=== PATIENT | male | born 1955 | race Caucasian/White ===

== ENCOUNTER 2020-04-13 14:55 | Emergency (ER) | payer OTHER, SELFPAY ==
[2020-04-13] VITALS (14 sets, daily range): BP systolic 123–177; BP diastolic 79–98; PULSE 96–106; RESP 21–30; TEMP 36.6; O2SAT 89–94
--- NOTE | ~2020-04-13 | XR_ITS ---
EXAMINATION: XR chest 1V portable DATE: 04/13/2020 15:22 INDICATION: Cough. Shortness of breath. Fever. TECHNIQUE: A single frontal view of the chest was obtained. COMPARISON: Chest single view 11/21/14, CT abdomen and pelvis 04/21/2015 FINDINGS: There are patchy and hazy airspace opacities in all lung zones bilaterally. No pleural effu tk or pneumothorax. The heart size is normal. IMPRESSION: 1. Diffuse lung disease suspicious for atypical pneumonia such as COVID-19 pneumonia. Pulmonary edema is less likely. Reviewed, dictated and finalized at location A. IDENT IMPRESSION: 1. Diffuse lung disease suspicious for atypical pneumonia such as COVID-19 pneu monia. Pulmonary edema is less likely.
--- NOTE | 2020-04-13 15:06 | ECG_ITS ---
Measurements Intervals [facility] Rate: 105 P: 9 AR: 141 QRS: -43 QRSD: 92 T: 66 QT: 338 QTc: 447 Interpretive Statements SINUS TACHYCARDIA LEFT AXIS DEVIATION DELAYED PRECORDIAL R/S TRANSITION BASELINE ARTIFACT- I, AVR, V1-V3, V6 BORDERLINE ECG Electronically Signed On 04-13-2020 16:04:07 TRAP SETTER by Mckay Hwang D.O.
[2020-04-13 15:15] LABS: Hematocrit 47.7 % (42.0-52.0); Hemoglobin 16.7 g/dL (14.0-18.0); Mean Corpuscular Hemoglobin 30.3 pg (26-34); Mean Corpuscular Volume 86.4 fl (80-100); Mean Platelet Volume 10.7 fl (7.4-10.4); Platelet Count Result 256 k/mm3 (150-375); Red Blood Count 5.52 M/mm3 (4.6-6.20); Red Cell Distribution Width 11.8 % (11.5-14.5); White Blood Count 14.4 K/mm3 (4.5-10.0)
[2020-04-13 15:26] LABS: Anion Gap 18 mmol/L (8-16); Blood Urea Nitrogen 28 mg/dL (9-20); Calcium 9.3 mg/dL (8.4-10.2); Carbon Dioxide 19 mmol/L (22-30); Chloride 96 mmol/L (98-107); Estimated CRCL calculation 54 ml/min; Estimated Glomerular Filt Rate > 60; Glucose 224 mg/dL (75-110); Potassium 4.4 mmol/L (3.4-5.0); Sodium 133 mmol/L (137-145)
[2020-04-13 15:39] LABS: Band Neutrophils Percent 7 % (0-6); Lymphocytes Absolute Manual 0.72 K/mm3 (1.1-4.5); Monocytes Absolute Manual 0.72 K/mm3 (0.1-0.90); Monocytes Percent Manual 5 % (3-9); Neutrophils Absolute Manual 12.96 K/mm3 (1.3-6.7); Neutrophils Percent Manual 83 % (46-73); Platelet Estimate Adequate (Adequate); Total Cells Counted 100
[2020-04-13] MEDS: SODIUM CHLORIDE 0.9% IV 1,000 ML 500 ML IV CONT (17:13)
--- NOTE | 2020-04-13 17:33 | ED.GENADULT ---
HPI - General Adult General Chief complaint: Shortness of Breath/Dyspnea Stated complaint: sob, fever Time Seen by Provider: 04/13/20 15:06 Source: patient Mode of arrival: ambulatory Limitations: no limitations History of Present Illness HPI narrative: 65-year-old with a history of hypertension, diabetes, hyperlipidemia here with complaints of not feeling well, shortness of breath, cough for past 5 days he also states that he has been having fever on and off. He states that he went to urgent care was later referred here to the ER. No history of nausea or vomiting. Onset (ago): day(s) (5) Radiation: non-radiation Associated symptoms: cough, fever/chills and malaise Treatments prior to arrival: none Related Data Home Medications Medication Instructions Recorded Confirmed aspirin 81 mg tablet,delayed 81 mg PO DAILY 06/19/19 release finasteride 1 mg tablet 1 mg PO DAILY 06/19/19 03/01/20 tamsulosin 0.4 mg capsule 0.4 mg PO DAILY 06/19/19 03/01/20 Allergies Allergy/AdvReac Type Severity Reaction Status Date / Time No Known Allergies Allergy Verified 03/01/20 10:46 Review of Systems Review of Systems: All systems reviewed & are unremarkable except as noted in HPI and below Constitutional: Constitutional: Reports no additional constitutional complaints Eyes: Eyes: Reports no additional eye complaints Cardiovascular: Cardiovascular: Reports no additional cardiovascular complaints Respiratory: Respiratory: Reports no additional respiratory complaints Gastrointestinal: Gastrointestinal: Reports no additional gastrointestinal complaints Musculoskeletal: Musculoskeletal: Reports no additional musculoskeletal complaints Neurologic: Reports as per HPI [facility] Past Medical History Medical History Screening for colon cancer Screening for prostate cancer Family History Family History Mother Hypertension Cerebrovascular accident Father Hypertension Social History Social History Smoking status: Never smoker Second hand tobacco smoke exposure: No Alcohol intake: current Exam Narrative: Exam Narrative: GENERAL: Well-appearing, well-nourished, and in no acute distress. HEAD: Normocephalic, atraumatic. EYES: PERRLA and EOMi NECK: Supple. CHEST: Clear to auscultation. No respiratory distress. HEART: Regular rate and rhythm. No murmur heard. Normal peripheral pulses. ABDOMEN: Soft, nontender, nondistended, normal active bowel sounds. EXTREMITIES: Normal range of motion. No edema. SKIN: Warm, dry, no rash. NEURO: No focal deficits. Alert and oriented x3. PSYCH: Normal mood and affect. Course Course Emergency Course: Inform patient about his lab work, chest x-ray findings. We will screen him for Covid. Advised him to continue his home medication. Call primary doctor or return to the ER here if shortness of breath gets worse. Vital Signs Vital signs: Vital Signs Temperature 36.6 C 04/13/20 15:02 Pulse Rate 105 H 04/13/20 15:02 Respiratory Rate 24 H 04/13/20 15:02 Blood Pressure 151/98 H 04/13/20 15:02 Pulse Oximetry 93 04/13/20 15:02 Temperature 36.6 C 04/13/20 15:02 Pulse Rate 105 H 04/13/20 17:16 Respiratory Rate 21 H 04/13/20 17:16 Blood Pressure 152/91 H 04/13/20 17:16 Pulse Oximetry 93 04/13/20 17:16 Medical Decision Making Vital Signs Vital Signs: Vital Signs Temperature 36.6 C 04/13/20 15:02 Pulse Rate 105 H 04/13/20 15:02 Respiratory Rate 24 H 04/13/20 15:02 Blood Pressure 151/98 H 04/13/20 15:02 Pulse Oximetry 93 04/13/20 15:02 Temperature 36.6 C 04/13/20 15:02 Pulse Rate 105 H 04/13/20 17:16 Respiratory Rate 21 H 04/13/20 17:16 Blood Pressure 152/91 H 04/13/20 17:16 Pulse Oximetry 93 04/13/20 17:16 Lab Data Result diagrams: 04/13/20 15:07
[2020-04-14 02:00] LABS: SARS-CoV-2 RNA PCR Positive
== END 2020-04-13 19:07 | disposition home or self-care (01) ==
PROVIDERS: Emergency Provider Family Medicine; PCP Internal Medicine
DX: U07.1 COVID-19 (principal); J12.89 Other viral pneumonia; I10 Essential (primary) hypertension; E78.5 Hyperlipidemia, unspecified; E11.9 Type 2 diabetes mellitus without complications; Z79.82 Long term (current) use of aspirin; R00.0 Tachycardia, unspecified; R94.31 Abnormal electrocardiogram [ECG] [EKG]
CPT/HCPCS: 36415; 71045; 80048; 85025; 87635; 93005; 96360; 96361; 99284; C9803; J7030; U0003

== ENCOUNTER 2020-04-26 10:43 | Emergency (ER) | payer OTHER, SELFPAY ==
--- NOTE | 2020-04-26 10:48 | ED.GENADULT ---
HPI - General Adult General Chief complaint: Skin/Abscess/Foreign Body Stated complaint: Insect Bite Time Seen by Provider: 04/26/20 10:48 Source: patient Mode of arrival: ambulatory Limitations: no limitations History of Present Illness HPI narrative: 65-year-old male patient presents to the [facility] with complaints of what he thinks might be a bug bite to the left anterior elbow. Patient states is been there for about a week and it is very itchy. Patient states he has just been putting some gllv-[id number]-wtqkpaa antiitch cream on it and has been itching it a lot. Patient denies any pain to the area. Denies any discharge from the area. Patient does have history of type 2 diabetes. Patient states that he was diagnosed with COVID-19 the day before but has completed his isolation and quarantine phase. Related Data Home Medications Medication Instructions Recorded Confirmed aspirin 81 mg tablet,delayed 81 mg PO DAILY 06/19/19 04/26/20 release tamsulosin 0.4 mg capsule 0.4 mg PO DAILY 06/19/19 04/26/20 finasteride 5 mg PO BID 04/26/20 04/26/20 Allergies Allergy/AdvReac Type Severity Reaction Status Date / Time No Known Allergies Allergy Verified 04/26/20 10:45 Review of Systems Review of Systems: Narrative: CONSTITUTIONAL: Denies fever, chills, or sweats. EYES: Denies visual changes, redness, or discharge. ENT: Denies rhinorrhea, congestion, sore throat, or otalgia. CARDIOVASCULAR: Denies chest pain, palpitations, or edema. RESPIRATORY: Denies cough or dyspnea. GASTROINTESTINAL: Denies abdominal pain, nausea, vomiting, or diarrhea. GENITOURINARY: Denies dysuria or hematuria. SKIN: Positive rash with itching to left arm on anterior elbow. MUSCULOSKELETAL: Denies back pain, joint pain, or myalgia. NEUROLOGIC: Denies headache, numbness, or weakness. PSYCHIATRIC: Denies anxiety or depression. [facility] Past Medical History Medical History (Updated 04/26/20 @ 11:22 by EDUARDO Salazar) Benign essential hypertension CAD in [place] artery Enlarged prostate Obesity (BMI 30.0-34.9) Other and unspecified hyperlipidemia Screening for colon cancer Screening for prostate cancer Type 2 diabetes mellitus without complication, without long-term current use of insulin Urinary retention Surgical History Surgical History (Updated 04/26/20 @ 11:22 by EDUARDO Salazar) H/O cardiac catheterization 12/03/2014 with 3 stents placed History of hip replacement Hx of cholecystectomy Family History Family History Mother Hypertension Cerebrovascular accident Father Hypertension Social History Social History Smoking status: Never smoker Second hand tobacco smoke exposure: No Alcohol intake: current Comments At the time of my signature I agree with nursing past medical history, surgical, social, and family history. There is no relevant family history pertinent to the presenting complaint. Exam Narrative: Exam Narrative: GENERAL: Well-appearing, well-nourished, and in no acute distress. HEAD: Normocephalic, atraumatic. EYES: PERRLA and EOMI. ENT: Nares clear, no rhinorrhea or epistaxis. Mucous membranes moist. NECK: Supple. No lymphadenopathy CHEST: Clear to auscultation. No respiratory distress. HEART: Regular rate and rhythm. No murmur heard. Normal peripheral pulses. ABDOMEN: Soft, nontender, nondistended, normal active bowel sounds. EXTREMITIES: Normal range of motion. No edema. SKIN: Warm, dry, patient has a very dry scaly rash noted to the flexor surface of the anterior elbow noted. The rash is on a erythemic base. There is some satellite areas noted. This is the only area of the rash and does not appear to have spread up or down the arm at this time. No open wounds or drainage. NEURO: No focal deficits. Alert and oriented x3. Course Vital Signs Vital signs: Vital Signs Temper
[2020-04-26 10:51] VITALS: BP 151/85; PULSE 99; RESP 16; TEMP 36.9; O2SAT 99
== END 2020-04-26 11:16 | disposition home or self-care (01) ==
PROVIDERS: Emergency Provider Nurse Practitioner Family; PCP Internal Medicine
DX: B35.4 Tinea corporis (principal); Z96.649 Presence of unspecified artificial hip joint; I10 Essential (primary) hypertension; I25.10 Atherosclerotic heart disease of native coronary artery without angina pectoris; Z95.5 Presence of coronary angioplasty implant and graft; N40.0 Benign prostatic hyperplasia without lower urinary tract symptoms; E78.5 Hyperlipidemia, unspecified; E11.9 Type 2 diabetes mellitus without complications; Z79.82 Long term (current) use of aspirin; Z86.19 Personal history of other infectious and parasitic diseases
CPT/HCPCS: 99213; G0463

== ENCOUNTER 2020-07-27 07:44 | Outpatient (CLI) | payer OTHER, SELFPAY ==
--- NOTE | 2020-07-27 08:01 | ECHO_ITS ---
Patient Info Name: Osvaldo Donovan Age: 65 years : 1955 Gender: Male Ht: 69 in Wt: 193 lbs BSA: 2.08 m2 HR: 71 bpm BP: 165 / 100 mmHg Heart Rhythm: Sinus Rhythm Exam Date: 07/27/2020 8:07 AM Exam Location: [facility] Patient Status: Outpatient Admit Date: 07/27/2020 Staff Ordering Physician: Mckay Hwang DO Methods Specialist: Coral Crabtree RDCS Attending Provider: Mckay Hwang DO Referring Physician: Jaiden KHOURY; Exam Type: CA echo doppler color flow Study Info Indications I25.10 - Atherosclerotic heart disease of [place] coronary artery without angina pectoris Complete two-dimensional, color flow and Doppler transthoracic echocardiogram is performed. Summary 1. Complete two-dimensional, color flow and Doppler transthoracic echocardiogram is performed. 2. Left ventricular chamber dimension is normal. 3. Left ventricular systolic function is normal, estimated at 55-60%. 4. There is mildly increased left ventricular wall thickness. 5. The left ventricular diastolic function is grade II diastolic dysfunction. 6. E/e' 14 is mildly elevated. Left Ventricle E/e' 14 is mildly elevated. Left ventricular chamber dimension is normal. Left ventricular systolic function is normal, estimated at 55-60%. There is mildly increased left ventricular wall thickness. The left ventricular diastolic function is grade II diastolic dysfunction. Right Ventricle Right ventricular chamber dimension is normal. Right ventricular systolic function is normal. Left Atria Left atrial chamber dimension is normal. Right Atria Right atrial chamber dimension is normal. Aortic Valve The aortic valve is trileaflet. There is no aortic valve stenosis. There is no aortic valve regurgitation. Pulmonic Valve There is no pulmonic regurgitation. Mitral Valve There is no mitral valve stenosis. There is no mitral valve regurgitation. Tricuspid Valve There is no tricuspid valve regurgitation. Pericardium/Pleural There is no pericardial effusion. Inferior Vena Cava Normal inferior vena cava with >50% collapse upon inspiration consistent with normal right atrial pressure, 5 mmHg. Aorta The aortic root size at the sinus of Valsalva is normal. Left Ventricular Outflow Tract Name Value Normal LVOT 2D LVOT Diameter 2.3 cm LVOT Doppler LVOT Peak Gradient 2 mmHg LVOT Mean Gradient 1 mmHg LVOT VTI 16 cm LVOT VTI/AV VTI Ratio 0.8 LVOT Stroke Volume 65 ml LVOT CO 9.5 l/min LVOT CI 4.5 l/min/m2 Pulmonic Valve Name Value Normal RVOT Doppler RVOT Peak Gradient 1 mmHg PV Doppler
== END 2020-07-27 07:45 | disposition home or self-care (01) ==
PROVIDERS: PCP Internal Medicine; Visit Provider Internal Medicine Cardiovascular Disease
DX: I25.10 Atherosclerotic heart disease of native coronary artery without angina pectoris (principal)
CPT/HCPCS: 93306

== ENCOUNTER → 2021-05-04 02:50 | Outpatient (CLI) | payer OTHER, SELFPAY ==
[2021-05-04 18:29] LABS: SARS-CoV-2 RNA PCR Negative
== END ==
PROVIDERS: PCP Internal Medicine; Visit Provider Internal Medicine
DX: Z20.822 Contact with and (suspected) exposure to COVID-19 (principal)
CPT/HCPCS: C9803; U0003; U0005

== ENCOUNTER → 2021-05-05 10:06 | Outpatient (CLI) | payer OTHER, SELFPAY ==
[2021-05-10 22:18] LABS: SARS-CoV-2 RNA PCR Negative
== END ==
PROVIDERS: PCP Internal Medicine; Visit Provider Internal Medicine
DX: R68.89 Other general symptoms and signs (principal); Z20.822 Contact with and (suspected) exposure to COVID-19
CPT/HCPCS: C9803; U0003; U0005

== ENCOUNTER 2022-10-01 09:12 | Outpatient (CLI) | payer MEDICARE, SELFPAY ==
--- NOTE | ~2022-10-01 | XR_ITS ---
XR hip LT min 2V 10/01/2022 09:33 Indication: Hip surgery. Left hip pain. Procedure: 2 views left hip Comparison: No prior studies for comparison. Findings: There is side plate and screws transfixing the left acetabulum. There is moderate osteoarth ritis of the left hip. There is heterotopic ossification adjacent to the proximal femur. No acute fra cture or traumatic malalignment. Impression: 1: No acute bone or joint abnormality. 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 Reviewed, dictated and finalized at location A. Impression: 1: No acute bone or joint abnormality. 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
== END 2022-10-01 09:13 | disposition home or self-care (01) ==
PROVIDERS: PCP Family Medicine; Visit Provider Family Medicine
DX: E11.9 Type 2 diabetes mellitus without complications (principal); N18.31 Chronic kidney disease, stage 3a; F41.9 Anxiety disorder, unspecified; N40.0 Benign prostatic hyperplasia without lower urinary tract symptoms; N52.9 Male erectile dysfunction, unspecified; R97.20 Elevated prostate specific antigen [PSA]; E78.5 Hyperlipidemia, unspecified; I25.10 Atherosclerotic heart disease of native coronary artery without angina pectoris
CPT/HCPCS: 73502

== ENCOUNTER 2023-02-01 11:21 | Outpatient (CLI) | payer MEDICARE, SELFPAY ==
--- NOTE | ~2023-02-01 | XR_ITS ---
AP view of the pelvis and AP and lateral views of the right hip Clinical history: Pain Findings: No acute fracture or dislocation is seen. Stable orthopedic fixation hardware at the left a cetabular region.. There is mild degenerative change of the right hip. There is moderate degenerative change of the left hip.. Soft tissues are unremarkable. Impression: No acute fracture or dislocation. Mild degenerative change of the right hip. Moderate degenerative change of the left hip. Prior ORIF of the left acetabulum. Reviewed, dictated and finalized at location M. Impression: No acute fracture or dislocation. Mild degenerative change of the right hip. Moderate degenerative change of the left hip. Prior ORIF of the left acetabulum.
== END 2023-02-01 11:22 | disposition home or self-care (01) ==
PROVIDERS: PCP Family Medicine; Visit Provider Nurse Practitioner Family
DX: M25.551 Pain in right hip (principal)
CPT/HCPCS: 73502

== ENCOUNTER 2023-04-17 08:59 | Outpatient (RCR) | payer MEDICARE, SELFPAY ==
--- NOTE | 2023-04-02 16:42 | PCPTNOTE ---
Patient No Show for initial evaluation this date.
--- NOTE | 2023-04-17 10:07 | PTOPEVDC ---
Assessment and note entered by Deepak Morocho, PT, DPT Thank you for referring Osvaldo Donovan to [facility].? An evaluation has been completed. No further treatment is needed. Evaluation Information Assessment Status Evaluation Diagnosis L hip trochanteric bursitis Subjective Information Pt states he was having a lot of hip pain for months over the summer to where it was difficult to walk or perform ADLs. He states he received a second injection on 02/07/23 and now is having no pain in his hip. Reported Pain Level Pain Score 0: Self Report Assessment PT Clinical Summary Osvaldo presents to therapy today for his initial evaluation with L hip bursitis. Today he demonstrates good hip ROM and strength that is pain free and symmetrical shanna. He demonstrates good scores compared to normative values during the 2 min walking test and 5xSTS. Today he was issued and HEP and a walking program to address his concerns with deconditioning. Skilled PT services are not indicated at this time and pt will therefore be discharged at this time. LEFS: 69/80 Plan of Care PT Services Indicated No Treatment Frequency and evaluate and discharge Duration
== END 2023-04-17 14:28 | disposition home or self-care (01) ==
LOC: ANHGOSHPT 08:59
PROVIDERS: PCP Family Medicine; Visit Provider Family Medicine
DX: M70.60 Trochanteric bursitis, unspecified hip (principal)
CPT/HCPCS: 97110; 97161; 97530

== ENCOUNTER 2023-04-23 08:49 | Outpatient (CLI) | payer MEDICARE, SELFPAY ==
--- NOTE | 2023-04-23 09:14 | ECG_ITS ---
Measurements Intervals [place] Rate: 60 P: 88 NC: 170 QRS: -37 QRSD: 109 T: 68 QT: 397 QTc: 398 Interpretive Statements SINUS RHYTHM MARKED LEFT AXIS DEVIATION [QRS AXIS < -30] BORDERLINE VOLTAGE IS EVIDENCE OF LVH ABNORMAL ECG COMPARED WITH 04/13/2020 HEART RATE IS REDUCED NO OTHER SIGNIFICANT CHANGE Electronically Signed On 04-23-2023 15:15:02 NET SOFTWARE ENGINEER by Benjamin Kirk M.D.
[2023-04-23 10:26] LABS: Anion Gap 8 mmol/L (8-16); Blood Urea Nitrogen 24 mg/dL (9-20); Calcium 9.4 mg/dL (8.4-10.2); Carbon Dioxide 27 mmol/L (22-30); Chloride 101 mmol/L (98-107); Estimated Glomerular Filt Rate > 60; Glucose 223 mg/dL (65-110); Potassium 4.9 mmol/L (3.4-5.0); Sodium 136 mmol/L (137-145)
[2023-04-23 10:28] LABS: INR 0.9; Prothrombin Time 12.3 Seconds (11.1-14.7)
[2023-04-23 10:29] LABS: Partial Thromboplastin Time 26.1 SECONDS (22.3-36.8)
== END 2023-04-23 08:50 | disposition home or self-care (01) ==
LOC: ANHSURGERY 08:54
PROVIDERS: Anesthesiology; PCP Family Medicine; Visit Provider Surgery
DX: Z01.818 Encounter for other preprocedural examination (principal); N18.31 Chronic kidney disease, stage 3a
CPT/HCPCS: 36415; 80048; 85610; 85730; 93005

== ENCOUNTER 2023-04-23 17:39 | Emergency (ER) | payer OTHER, MEDICARE, SELFPAY ==
--- NOTE | ~2023-04-23 | CT_ITS ---
Non-contrast Head CT History: Head injury Technique: Axial non-contrast imaging of the brain was performed. Dose reduction technique was used on this scan by utilizing automated exposure control and iterative reconstruction technique. The dose -length product (DLP) was 681.00 mGy-cm. Findings: There is no evidence of intracranial hemorrhage, mass lesion, or acute infarct. Brain par enchyma appears normal. The ventricles and subarachnoid spaces are normal in size. The calvarium ap pears normal. The visualized paranasal sinuses and mastoid air cells are clear. Impression: No significant abnormality seen. Reviewed, dictated and finalized at location . Y FARM SUPERVISOR Impression: No significant abnormality seen.
--- NOTE | ~2023-04-23 | XR_ITS ---
Clinical Indication: Cough PA and lateral views of the chest: Comparison: 04/13/2020 Findings: The lungs are clear, without evidence of focal consolidation or pleural effusion. Cardiome diastinal silhouette is within normal limits. Bones and soft tissues are unremarkable. Impression: Normal chest. Reviewed, dictated and finalized at [facility]. DESIGNER Impression: Normal chest.
[2023-04-23 18:48] VITALS: BP 191/88; PULSE 81; RESP 18; TEMP 36.2; O2SAT 100
[2023-04-23 21:14] VITALS: BP 149/86; PULSE 69; RESP 16; O2SAT 99
[2023-04-23 21:17] LABS: Glucose Point of Care 255 mg/dl (65-105)
[2023-04-24 00:24] VITALS: BP 157/93; PULSE 73; RESP 14; TEMP 36.6; O2SAT 99
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
[2023-04-24] MEDS: TETANUS,DIPHTHERIA,AC PERTUSSIS ADULT (0.5 ML) BOOSTRIX IM (00:58)
[2023-04-24 02:42] VITALS: BP 110/77; PULSE 65; RESP 14; O2SAT 98
[2023-04-24 03:56] VITALS: BP 130/77; PULSE 71; RESP 16; TEMP 36.6; O2SAT 99
== END 2023-04-24 03:57 | disposition home or self-care (01) ==
PROVIDERS: Emergency Provider Physician Assistant; PCP Family Medicine
DX: S00.01XA Abrasion of scalp, initial encounter (principal); J06.9 Acute upper respiratory infection, unspecified; Z23 Encounter for immunization; I10 Essential (primary) hypertension; I25.10 Atherosclerotic heart disease of native coronary artery without angina pectoris; E78.5 Hyperlipidemia, unspecified; E11.9 Type 2 diabetes mellitus without complications; N40.1 Benign prostatic hyperplasia with lower urinary tract symptoms; R33.8 Other retention of urine; Z96.649 Presence of unspecified artificial hip joint; Z90.49 Acquired absence of other specified parts of digestive tract; Z79.82 Long term (current) use of aspirin; Z79.85 Long-term (current) use of injectable non-insulin antidiabetic drugs; Z79.84 Long term (current) use of oral hypoglycemic drugs; V43.52XA Car driver injured in collision with other type car in traffic accident, initial encounter
CPT/HCPCS: 70450; 71046; 82948; 90471; 90715; 99284

== ENCOUNTER 2023-04-26 01:29 | Day surgery (SDC) | payer MEDICARE, SELFPAY ==
[2023-04-19 15:38] VITALS: BMI 28.1
--- NOTE | 2023-04-19 15:53 | PC.NURSE ---
Addendum entered by Mary Bowen RN 04/23/23 09:14: pt here for preop testing, he is aware surgery is 04/26, not 04/27 Original Note: PRE-OP INSTRUCTIONS, PLEASE READ CAREFULLY Report to the Outpatient Waiting Room, entrance under the green pavilion located off [facility], at time _0800_ on date _04/27/23_. Planned Procedure Time: _1000_. Time changes happen often and if your time is changed the preop area will call you the afternoon before. - You and your visitor will be asked to self-screen and do not enter if you have any COVID symptoms. - A mask is optional within the hospital at this time. Patients may have clear liquids (water, carbonated beverages, clear teas, apple juice) until 3 hours prior to surgery (0700 AM) with a maximum of 20 ounces. - No food from midnight until time of surgery Take the following medications with a SIP of water the morning of surgery: _INHALER IF NEEDED_ DO NOT STOP ANY OF YOUR OTHER PRESCRIPTION MEDICATIONS PRIOR TO SURGERY ?EXCEPT THE FOLLOWING Medications to discontinue _NAPROXEN PER DR. SMITH - CALL OFFICE FOR INSTRUCTIONS__ Please no make-up, nail syriac, hairspray, perfume, deodorant, or body powder the day of surgery. No jewelry (including any body piercings) or valuables the day of surgery, leave them at home. Please take a shower or bath the night before, or the morning of, surgery with an antibacterial soap. Wear comfortable, loose fitting clothing. - Jewelry must be removed prior to entering the operating room. Rings and piercings that are not removed may be cut off. - The hospital will not accept responsibility for valuables. - Please leave all valuables, including medications, at home the day of surgery. If you are going home after surgery, a licensed helper driver must drive you home. - NO public transportation without another adult if you receive anesthesia. - We recommend that an adult stay with you for 24 hours following discharge. - We also recommend that you do not drive, make important decision, drink alcoholic beverages, or take any drugs that were not prescribed by your health care provider for at least 24 hours after your discharge time. Follow any additional instructions given to you from your surgeon. If you or anyone in your household have experienced Covid symptoms in the past week, please notify your surgeon or the nurse liaison at the phone number below for possible testing. Telephone instructions given to _PATIENT_and asked if any additional questions and then verbalized understanding. Patient advised to call surgeon office or pre surgery nurse liaison [phone] if any additional questions.
--- NOTE | 2023-04-26 07:25 | WPDHPUPDATE1 ---
History and Physical Update Update Date/Time: 04/26/23 07:25 History and Physical has been reviewed, including an updated exam of the patient. There are NO changes in the patient's condition. Risks, benefits, and alternatives have been discussed and questions answered. Patient agrees to proceed with procedure.
[2023-04-26 08:33] LABS: Glucose Point of Care 233 mg/dl (65-105)
--- NOTE | 2023-04-26 08:51 | WPDANESEPPF ---
Anes - Initial Pre Proc Eval Procedure: Operation Date: 04/26/23 10:00 Proposed Procedures p Excisional Biopsy Right Posterior Neck Mass - Denise Castro MD Date/Time: 04/26/23 08:51 Surgeon: Denise Castro MD Pre Op Diagnosis: Rt Posterior Neck Mass Patient Data Age: 68 Gender: M Height: 1.73 m Weight: 84.09 kg Allergies Allergy/AdvReac Type Severity Reaction Status Date / Time No Known Allergies Allergy Verified 04/23/23 17:40 Home Medications Medication Instructions Recorded Confirmed Type aspirin 81 mg tablet,delayed 81 mg PO DAILY 06/19/19 04/19/23 History release (Adult Aspirin Regimen) tamsulosin 0.4 mg capsule (Flomax) 0.4 mg PO DAILY #90 caps 09/12/22 04/19/23 Rx albuterol sulfate 90 mcg/actuation 1 inh inhalation Q4H PRN shortness 09/29/22 04/19/23 Rx aerosol inhaler of breath or wheezing #8.5 grams tadalafil 10 mg tablet (Cialis) 10 mg PO DAILY PRN sexual activity 09/29/22 04/19/23 Rx #10 tabs semaglutide 2 mg/dose (8 mg/3 mL) 2 mg (0.75 mL) subcut WEEKLY #3 mL 12/03/22 04/19/23 Rx subcutaneous pen injector (Ozempic) lisinopril 10 mg tablet See Rx Instructions .Route 12/05/22 04/19/23 Rx .COMPLEX #90 tabs finasteride 5 mg tablet 5 mg PO ONCE 12/13/22 04/19/23 History dapagliflozin propanediol 10 mg 10 mg PO DAILY #90 tabs 04/02/23 04/19/23 Rx tablet (Farxiga) naproxen 500 mg tablet See Rx Instructions .Route 04/03/23 04/19/23 Rx .COMPLEX #60 tabs pravastatin 10 mg tablet See Rx Instructions .Route 04/20/23 04/20/23 Rx .COMPLEX #90 tabs Laboratory Tests 04/26/23 08:30 POC Capillary Glucose 233 H mg/dl (65-105) Patient hx anesthesia problems: none Family hx anesthesia problems: none Results Review: All pre-operative results and documents have been reviewed as part of the pre-operative evaluation. [facility] Past Medical History Medical History Benign essential hypertension CAD in [place] artery Dyslipidemia Enlarged prostate Obesity (BMI 30.0-34.9) Other and unspecified hyperlipidemia Screening for colon cancer Screening for prostate cancer Type 2 diabetes mellitus without complication, without long-term current use of insulin Urinary retention Surgical History Surgical History H/O cardiac catheterization 12/03/2014 with 3 stents placed History of hip replacement Hx of cholecystectomy Family History Family History Mother Hypertension Cerebrovascular accident Father Hypertension Social History Social History Smoking status: Never smoker Second hand tobacco smoke exposure: No Alcohol intake: current Alcohol use details: SOCIAL 2-3/MONTH Substance use: never Substance use type: does not use Lack of Transportation: No Lack of Food: Never True Current Housing: I Have Housing Concerned About Future Housing: YES Difficulty Paying Gas/Electric Bills: No Difficulty Paying for Meds: No Currently Unemployed: No Education: Master's Degree or Higher Difficulty w/ Childcare or Family Care: No Living arrangements: alone Spiritual care concerns: No Anes - Eval Final PreProcedure Day of Procedure 04/26/23 08:51 Patient weight: overweight Heart: regular rate and rhythm Lungs: clear to auscultation Airway: Mallampati scale class II Neurological: alert and oriented Last oral intake: >/= 8 hours ASA classification: III Emergent: no Anesthetic plan: proceed Anesthesia type and monitoring: general ETT and standard monitoring Results Review: All pre-operative results and documents have been reviewed as part of the pre-operative evaluation. Informed Consent: The patient's anesthetic plan and its attendant risks and benefits were discussed with the patient/family/POA. Questions were tia
[2023-04-26 08:59] VITALS: BP 138/90; PULSE 73; RESP 14; TEMP 36.3; O2SAT 100
[2023-04-26] MEDS: LACTATED RINGERS 1,000 ML 30 ML IV CONT (09:04)
[2023-04-26] MEDS: ceFAZolin 2 GM/D5W 50 ML 2 GM/50 ML BAG IVPB (10:01)
[2023-04-26] MEDS: BUPIVACAINE/EPINEPHRINE 0.5% 50 ML VIAL INFILTRATE (10:13)
--- NOTE | 2023-04-26 10:40 | W.PM.PROC2 ---
Procedure Note - Detailed Date of Procedure 04/26/23 Pre-op Diagnosis Rt Posterior Neck Mass Post-op Diagnosis Same Procedure Performed excisional biopsy right posterior neck mass measuring approximately 9 x 7 cm most consistent multi lobular lipoma Surgeon Denise Castro MD Anesthesia MAC and Local Indications 68-year-old male presenting to the office with a large right posterior neck mass. Patient reports mass has slowly grown in size and is now symptomatic especially with pressure, palpitation. Findings 9 x 7 cm multi lobular lipoma in the right posterior neck Description of Procedure The patient was taken to the operating and placed in the supine position. After adequate induction of MAC anesthesia, the patient was prepped and draped sterile fashion. A time-out was then done to verify the patient's identity, as well as the procedure being performed. I began by localizing the area around this mass in the right posterior neck. I then made a incision over the most prominent area of the mass with a 15 blade scalpel. This was taken down through the dermis into the subcutaneous tissue. At this point, there was noted to be a large multi lobular lipoma. Using very careful blunt and sharp dissection, I was able to fully excise the mass. There are multiple extensions of these lipomas into a small pockets in the subcutaneous tissue. I was able to remove the mass in full. It will be sent to pathology for further review. I then copiously irrigated the cavity. No other pathology was noted. I then closed the subcutaneous tissue with 3-0 Vicryl suture. The skin was closed with 4-0 Monocryl subcuticular suture. Please note the mass was fully contained within the subcutaneous tissue and did not invade the underlying fascia or muscle. The patient tolerated the procedure well and was alert and awake postoperatively. He will be transferred to the recovery room in stable condition. Estimated Blood Loss 5 Drains No Packing No Pathology None sent Complications No immediate complications Condition Stable Disposition PACU [facility] Billing Surgery - Charge Forward: Surgery Billing
[2023-04-26 10:41] VITALS: BP 106/60; PULSE 76; RESP 12; O2SAT 98
[2023-04-26 11:03] LABS: Glucose Point of Care 215 mg/dl (65-105)
[2023-04-26 11:10] VITALS: BP 126/82; PULSE 67; RESP 12
--- NOTE | 2023-04-26 11:24 | SUR.PHASEII ---
DR. ZAFAR AWARE OF BS 215 AT 1042.
[2023-04-26 11:40] VITALS: BP 141/70; PULSE 57; RESP 12
== END 2023-04-26 12:30 | disposition home or self-care (01) ==
PROVIDERS: PCP Family Medicine; Visit Provider Surgery
PROC: (CPT 21552; principal; 2023-04-26 10:00)
DX: D17.0 Benign lipomatous neoplasm of skin and subcutaneous tissue of head, face and neck (principal); I10 Essential (primary) hypertension; I25.10 Atherosclerotic heart disease of native coronary artery without angina pectoris; E78.5 Hyperlipidemia, unspecified; E11.9 Type 2 diabetes mellitus without complications; Z95.5 Presence of coronary angioplasty implant and graft; Z79.82 Long term (current) use of aspirin; Z79.51 Long term (current) use of inhaled steroids; Z79.85 Long-term (current) use of injectable non-insulin antidiabetic drugs
CPT/HCPCS: 21552; 36415; 80048; 82948; 85610; 85730; 88304; 93005; J0690; J2250; J2405; J2704; J3010; J7120

== ENCOUNTER 2024-08-09 14:07 | Emergency (ER) | payer MEDICARE, SELFPAY ==
[2024-08-09 14:13] VITALS: BP 174/77; PULSE 87; RESP 18; TEMP 36.6; O2SAT 99
--- NOTE | 2024-08-09 14:20 | ED.URI ---
HPI - URI/Sore Throat General Chief Complaint: Upper Respiratory Infection Stated Complaint: sinus drainage,fever Time Seen by Provider: 08/09/24 14:20 Source: patient, RN notes reviewed and old records reviewed Mode of arrival: ambulatory Limitations: no limitations History of Present Illness HPI Narrative: Patient with history of allergic rhinitis presents with complaints of increased sinus congestion, intermittent fever, body aches. Reports that symptoms have been present for about 5 days. States that he takes Zyrtec daily, has had moderate relief from this. He is afebrile on arrival. He does not appear to be in any distress Related Data Home Medications ?Medication ?Instructions ?Recorded ?Confirmed ?Last Taken ?Type aspirin 81 mg tablet,delayed 81 mg PO DAILY 06/19/19 06/10/24 Unknown History release (Adult Aspirin Regimen) finasteride 5 mg tablet 5 mg PO ONCE 12/13/22 06/10/24 Unknown History fluticasone propionate 50 2 spray intranasal DAILY PRN 06/10/24 06/10/24 Unknown History mcg/actuation nasal spray,suspension (Children's Flonase Allergy Relief) Allergies Allergy/AdvReac Type Severity Reaction Status Date / Time No Known Allergies Allergy Verified 08/09/24 14:11 Review of Systems Review of Systems: All systems reviewed & are unremarkable except as noted in HPI and below Constitutional: Constitutional: Reports no additional constitutional complaints, Reports fever(s), Reports headache(s) and Reports lethargy ENT: Reports system reviewed and no additional complaints, except as documented, Reports nasal congestion, Reports nasal discharge and Reports sinus pressure Cardiovascular: Cardiovascular: Reports no additional cardiovascular complaints Respiratory: Respiratory: Reports no additional respiratory complaints and Reports cough Gastrointestinal: Gastrointestinal: Reports no additional gastrointestinal complaints [facility] Past Medical History Medical History Dyslipidemia Urinary retention Enlarged prostate Screening for colon cancer Screening for prostate cancer Benign essential hypertension CAD in [place] artery Obesity (BMI 30.0-34.9) Other and unspecified hyperlipidemia Type 2 diabetes mellitus without complication, without long-term current use of insulin Surgical History Surgical History H/O excision of mass History of hip replacement Hx of cholecystectomy H/O cardiac catheterization 12/03/2014 with 3 stents placed Family History Family History Mother Hypertension Cerebrovascular accident Father Hypertension Social History Social History Smoking status: Never smoker Second hand tobacco smoke exposure: No Alcohol intake: current Alcohol use details: SOCIAL 2-3/MONTH Substance use: never Substance use type: does not use Do You Feel Safe in your Home?: Yes Lack of Transportation: No Lack of Food: Never True Current Housing: I Have Housing Concerned About Future Housing: No Difficulty Paying Gas/Electric Bills: No Difficulty Paying for Meds: YES Currently Unemployed: No Education: Master's Degree or Higher Difficulty w/ Childcare or Family Care: No Living arrangements: alone Spiritual care concerns: No Comments At the time of my signature, I reviewed and agree with the nursing past medical, surgical, social, and family history. There is no relevant family history pertinent to the patient complaint. Exam Const: General: cooperative, no acute distress, alert and awake Orientation/consciousness: oriented to person, oriented to place and oriented to time HENMT: Head: normal to inspection Ears: TM abnormal dull bilateral Mouth: Yes moist mucous membranes Throat: postnasal drainage Resp: Effort & Inspection: normal respiratory effort and able to speak in complete sentences Auscultation: clear to auscultation bilaterally, no crackles, no rales, no rhonchi and no wheezes Cardio: Palpation: normal PMI Rate: regular rate Rhythm: regular rhythm Heart sounds: S1 normal heart sound present and S2 normal heart sound present Neuro: General: oriented to person, oriented to place and oriented to time Cranial nerves: Yes CN's II-XII intact bilaterally Psych: Appearance: grossly normal Thought process: Normal thought process present Insight: Good insight present (Psych) Judgement: Good judgement present (Psych) Course Course Level of Care: Express Care Visit Vital Signs Vital signs: Reviewed MDM - URI/Sore Throat MDM Narrative Medical decision making narrative: Negative COVID, negative flu, negative strep. Culture pending. Suspect that symptoms are allergic or viral in origin. He is encouraged to continue taking Zyrtec daily, short burst of prednisone now and start Flonase. Elevated blood pressure discussed. Patient encouraged to follow-up with PCP osorio regarding this. Emergency department precautions discussed. Next para Discharge instructions reviewed with patient, as well as provided in writing per nursing staff. The instructions also include specific and strict return/GO TO THE ER as well as f/u information. All questions have been answered, and the patient deny any further questions with discharge and discharge plan. Some parts of this dictation were generated by voice recognition software and may contain typographical and/or grammatical inaccuracies. Differential Diagnosis Differential diagnosis: Likely upper respiratory infection, otitis media, sinusitis, viral infection, influenza and pharyngitis Medical Records Attestation: I reviewed the patient's medical records. Lab Data Attestation: I reviewed the patient's lab results. Discharge Plan Discharge Clinical Impression: Allergic rhinitis Qualifiers: Allergic rhinitis trigger: unspecified Allergic rhinitis seasonality: unspecified Qualified Code(s): J30.9 - Allergic rhinitis, unspecified Patient Disposition: Home, Self-Care Condition: Stable Instructions: Antibiotic Form, Allergies (ED) Additional Instructions: Continue taking Zyrtec daily. Follow-up with primary care provider. Emergency department for new or worse symptoms Patient Language: Kyrgyz Prescriptions: New prednisone 50 mg tablet 50 mg PO DAILY Qty: 5 0RF Children's Flonase Sensimist 27.5 mcg/actuation spray,suspension 1 spray intranasal DAILY Qty: 5.9 0RF Rx Instructions: into each nostril No Action finasteride 5 mg tablet 5 mg PO ONCE aspirin [Adult Aspirin Regimen] 81 mg tablet,delayed release (DR/EC) 81 mg PO DAILY albuterol sulfate 90 mcg/actuation HFA aerosol inhaler 1 inh inhalation Q4H PRN (Reason: shortness of breath or wheezing) Qty: 8.5 0RF fluticasone propionate [Children's Flonase Allergy Rlf] 50 mcg/actuation spray,suspension 2 spray intranasal DAILY PRN Rx Instructions: administer into each nostril lisinopril 20 mg tablet 20 mg PO DAILY Qty: 90 1RF nitroglycerin 0.4 mg tablet, sublingual 0.4 mg sublingual Q5M PRN (Reason: chest pain) Qty: 30 2RF Rx Instructions: do not exceed 3 doses per episode tamsulosin [Flomax] 0.4 mg capsule 0.4 mg PO DAILY Qty: 90 1RF Ozempic 2 mg/dose (8 mg/3 mL) pen injector 2 mg subcut WEEKLY Qty: 3 3RF Rx Instructions: TAKES ON SUNDAYS pravastatin 10 mg tablet See Rx Instructions .ROUTE .COMPLEX Qty: 90 3RF Dose Instruction: Take 1 tablet by mouth once daily Rx Instructions: Take 1 tablet by mouth once daily Farxiga 10 mg tablet 10 mg PO DAILY Qty: 90 1RF naproxen 500 mg tablet See Rx Instructions .ROUTE .COMPLEX Qty: 60 0RF Dose Instruction: Take 1 tablet by mouth twice daily Rx Instructions: Take 1 tablet by mouth twice daily Follow-up/Referrals: Raymon Gonzalez MD [Primary Care Provider] - 1 Week Time of Disposition: 15:00
[2024-08-09 14:41] LABS: EDCOVIDSCREEN Negative (Negative); EDINFLUASCREEN Negative (Negative); EDINFLUBSCREEN Negative (Negative); EDSTREPNEGPOS1 Negative (Negative)
== END 2024-08-09 15:05 | disposition home or self-care (01) ==
PROVIDERS: Emergency Provider Nurse Practitioner Family; PCP Family Medicine
DX: J30.9 Allergic rhinitis, unspecified (principal); I10 Essential (primary) hypertension; I25.10 Atherosclerotic heart disease of native coronary artery without angina pectoris; E11.9 Type 2 diabetes mellitus without complications; Z79.4 Long term (current) use of insulin; Z20.822 Contact with and (suspected) exposure to COVID-19
CPT/HCPCS: 87081; 87426; 87804; 87880; 99213; G0463

== ENCOUNTER 2024-08-15 15:01 | Emergency (ER) | payer MEDICARE, SELFPAY ==
[2024-08-15 15:10] VITALS: BP 138/77; PULSE 86; RESP 20; TEMP 36.5; O2SAT 97
[2024-08-15 15:14] VITALS: PULSE 86; RESP 20; O2SAT 97
--- NOTE | 2024-08-15 15:14 | ED.URI ---
HPI - URI/Sore Throat General Chief Complaint: Upper Respiratory Infection Stated Complaint: sinus issue worse Time Seen by Provider: 08/15/24 15:15 Source: patient and RN notes reviewed Mode of arrival: ambulatory Limitations: no limitations History of Present Illness HPI Narrative: 69-year-old male presents with concern for sinus pressure, congestion, cough. Reports 11 days of symptoms. Reports he was seen recently was given a steroid, he finished a steroid without much relief. He denies fever. He denies trouble breathing MD elicited complaint: cough and nasal congestion Related Data Home Medications ?Medication ?Instructions ?Recorded ?Confirmed ?Last Taken ?Type aspirin 81 mg tablet,delayed 81 mg PO DAILY 06/19/19 06/10/24 Unknown History release (Adult Aspirin Regimen) finasteride 5 mg tablet 5 mg PO ONCE 12/13/22 06/10/24 Unknown History Allergies Allergy/AdvReac Type Severity Reaction Status Date / Time No Known Allergies Allergy Verified 08/15/24 15:03 Review of Systems Review of Systems: CONSTITUTIONAL: Denies malaise, chills, sweats, or fever. EYES: Denies visual changes, redness, or discharge. ENT: Reports rhinorrhea, congestion, sinus pain CARDIOVASCULAR: Denies chest pain, palpitations, or edema. RESPIRATORY: Reports cough. Denies dyspnea. GASTROINTESTINAL: Denies abdominal pain, nausea, vomiting, diarrhea SKIN: Denies rash or itching. MUSCULOSKELETAL: Denies myalgia. NEUROLOGIC: Denies headache. All systems reviewed & are unremarkable except as noted in HPI and below PMFSH Past Medical History Medical History Dyslipidemia Urinary retention Enlarged prostate Screening for colon cancer Screening for prostate cancer Benign essential hypertension CAD in [place] artery Obesity (BMI 30.0-34.9) Other and unspecified hyperlipidemia Type 2 diabetes mellitus without complication, without long-term current use of insulin Surgical History Surgical History H/O excision of mass History of hip replacement Hx of cholecystectomy H/O cardiac catheterization 12/03/2014 with 3 stents placed Family History Family History Mother Hypertension Cerebrovascular accident Father Hypertension Social History Social History Smoking status: Never smoker Second hand tobacco smoke exposure: No Alcohol intake: current Alcohol use details: SOCIAL 2-3/MONTH Substance use: never Substance use type: does not use Do You Feel Safe in your Home?: Yes Lack of Transportation: No Lack of Food: Never True Current Housing: I Have Housing Concerned About Future Housing: No Difficulty Paying Gas/Electric Bills: No Difficulty Paying for Meds: YES Currently Unemployed: No Education: Master's Degree or Higher Difficulty w/ Childcare or Family Care: No Living arrangements: alone Spiritual care concerns: No Comments At time of signature, agree with nursing past medical, surgical, social and family history. There is no relevant family history pertinent to the presenting complaint Exam Narrative: GENERAL: Well-appearing, well-nourished, and in no acute distress. HEAD: Normocephalic EYES: PERRLA, conjunctivae clear ENT: Nares clear, turbinates edematous and erythematous. Mucous membranes moist. TM pearly yusuf with dull light reflex bilaterally; no tragal tenderness. Oropharynx not erythematous without lesions. Tonsils not enlarged and without exudate, no drooling, no hoarseness, no trismus, uvula midline. NECK: Supple. No lymphadenopathy CHEST: Wheeze throughout, aeration good, breath sounds equal. No rhonchi, rales, or stridor. No respiratory distress, speaks in full sentences. HEART: Regular rate and rhythm. No murmur heard. SKIN: Warm, dry, no rash. NEURO: Alert and oriented x3. PSYCH: Normal mood and affect Course Course Emergency Course: Patient is aware of diagnosis, understands and agrees to treatment plan. Anticipatory guidance given. Patient agrees to follow-up as directed and is aware of reasons to seek care at the emergency department. Portions of this record may have been created with voice recognition software Level of Care: Express Care Visit Vital Signs Vital signs: Vital Signs Temperature 97.7 F 08/15/24 15:10 Pulse Rate 86 08/15/24 15:10 Respiratory Rate 20 08/15/24 15:10 Blood Pressure 138/77 08/15/24 15:10 Pulse Oximetry 97 08/15/24 15:10 Oxygen Delivery Room Air 08/15/24 15:10 Temperature 97.7 F 08/15/24 15:10 Pulse Rate 86 08/15/24 15:10 Respiratory Rate 20 08/15/24 15:10 Blood Pressure 138/77 08/15/24 15:10 Pulse Oximetry 97 08/15/24 15:10 Oxygen Delivery Room Air 08/15/24 15:10 Reviewed. MDM - URI/Sore Throat MDM Narrative Medical decision making narrative: Differential diagnosis considered: [place] virus, strep pharyngitis, allergic rhinitis, upper respiratory tract infection, sinusitis, rhinosinusitis, nasopharyngitis. viral pharyngitis, otitis media, otitis externa, pneumonia, bronchitis, viral cough syndrome, viral syndrome, and influenza. Exam findings show no acute concerns or changes; patient is non-toxic appearing and is in no distress. Patient is appropriate for outpatient treatment and follow-up. Lab Data Attestation: I reviewed the patient's lab results. Critical Care Time Critical Care Time Critical Care Time: No Discharge Plan Discharge Clinical Impression: Sinobronchitis Patient Disposition: Home, Self-Care Condition: Stable Instructions: Antibiotic Form, How to Use a Metered-Dose Inhaler and a Spacer (ED) Additional Instructions: Take medication as prescribed Recommend antihistamine such as Benadryl at night time and Zyrtec or Anat during the day Use inhaler as needed for cough, wheezing, shortness of breath or chest tightness. Also, recommend symptomatic treatment includes: rest, fluids, and increase humidity of the air at home. Recommend Acetaminophen as directed on the bottle to reduce fever, pain, headache. Avoid smoking/second-hand smoke. Please schedule a follow-up visit with your personal physician for further evaluation and treatment within 3-5days. If your symptoms persist, change or worsen significantly before you can contact your personal physician then please, without delay, go to the emergency department for further evaluation. Patient Language: Afghan Prescriptions: New doxycycline monohydrate 100 mg tablet 100 mg PO BID 7 Days Qty: 14 0RF albuterol sulfate 90 mcg/actuation HFA aerosol inhaler 2 puff INHALATION QID PRN (Reason: shortness of breath or wheezing) Qty: 8.5 0RF (DME) Aerovent Plus Spacer See Rx Instructions .Route Qty: 10 0RF Rx Instructions: As directed No Action finasteride 5 mg tablet 5 mg PO ONCE aspirin [Adult Aspirin Regimen] 81 mg tablet,delayed release (DR/EC) 81 mg PO DAILY albuterol sulfate 90 mcg/actuation HFA aerosol inhaler 1 inh inhalation Q4H PRN (Reason: shortness of breath or wheezing) Qty: 8.5 0RF lisinopril 20 mg tablet 20 mg PO DAILY Qty: 90 1RF nitroglycerin 0.4 mg tablet, sublingual 0.4 mg sublingual Q5M PRN (Reason: chest pain) Qty: 30 2RF Rx Instructions: do not exceed 3 doses per episode tamsulosin [Flomax] 0.4 mg capsule 0.4 mg PO DAILY Qty: 90 1RF pravastatin 10 mg tablet See Rx Instructions .ROUTE .COMPLEX Qty: 90 3RF Dose Instruction: Take 1 tablet by mouth once daily Rx Instructions: Take 1 tablet by mouth once daily Farxiga 10 mg tablet 10 mg PO DAILY Qty: 90 1RF naproxen 500 mg tablet See Rx Instructions .ROUTE .COMPLEX Qty: 60 0RF Dose Instruction: Take 1 tablet by mouth twice daily Rx Instructions: Take 1 tablet by mouth twice daily metformin 500 mg tablet extended release 24 hr See Rx Instructions .ROUTE .COMPLEX Qty: 360 0RF Dose Instruction: Take 2 tablets by mouth twice daily Rx Instructions: Take 2 tablets by mouth twice daily Ozempic 2 mg/dose (8 mg/3 mL) pen injector 2 mg subcut WEEKLY Qty: 3 3RF Rx Instructions: TAKES ON SUNDAYS Follow-up/Referrals: Raymon Gonzalez MD [Primary Care Provider] - Time of Disposition: 15:26
== END 2024-08-15 15:30 | disposition home or self-care (01) ==
PROVIDERS: Emergency Provider Nurse Practitioner; PCP Family Medicine
DX: J32.9 Chronic sinusitis, unspecified (principal); J40 Bronchitis, not specified as acute or chronic; I25.10 Atherosclerotic heart disease of native coronary artery without angina pectoris; I10 Essential (primary) hypertension; E11.9 Type 2 diabetes mellitus without complications
CPT/HCPCS: 99213; G0463

== ENCOUNTER 2024-08-25 08:52 | Emergency (ER) | payer MEDICARE, SELFPAY ==
[2024-08-25 09:10] VITALS: BP 132/77; PULSE 73; RESP 16; TEMP 36.3; O2SAT 100
[2024-08-25] MEDS: cefTRIAXone 1 GM, LIDOCAINE 1% LOCAL INJ 2.1 ML IM (09:23)
--- NOTE | 2024-08-25 09:35 | ED_ITS ---
HPI - Skin/Abscess/Foreign Bdy General Chief complaint: Skin/Abscess/Foreign Body Stated complaint: Insect Bite Time Seen by Provider: 08/25/24 08:55 Source: patient Mode of arrival: ambulatory Limitations: no limitations History of Present Illness HPI narrative: Osvaldo is a 69-year-old male patient presenting to the clinic today with complaints of a possible insect bite to the left medial antecubital. He reports he 1st noticed this last night. Does have itching over the area and thinks he may have been bit by an insect. Has red streaking going up the arm to the mid humerus. He denies any fevers, chills, body aches. Patient is a type 2 diabetic. Related Data Home Medications ?Medication ?Instructions ?Recorded ?Confirmed ?Last Taken ?Type aspirin 81 mg tablet,delayed 81 mg PO DAILY 06/19/19 06/10/24 Unknown History release (Adult Aspirin Regimen) finasteride 5 mg tablet 5 mg PO ONCE 12/13/22 06/10/24 Unknown History Allergies Allergy/AdvReac Type Severity Reaction Status Date / Time No Known Allergies Allergy Verified 08/25/24 09:01 Review of Systems Review of Systems: Pertinent positives per HPI. Patient denies any fever, chills, rash, headache, visual changes, dizziness, cough, runny nose, sore throat, shortness of breath, chest pain, palpitations, nausea, vomiting, diarrhea, constipation, abdominal pain, or any urinary issues. [facility] Past Medical History Medical History Dyslipidemia Urinary retention Enlarged prostate Screening for colon cancer Screening for prostate cancer Benign essential hypertension CAD in [place] artery Obesity (BMI 30.0-34.9) Other and unspecified hyperlipidemia Type 2 diabetes mellitus without complication, without long-term current use of insulin Surgical History Surgical History H/O excision of mass History of hip replacement Hx of cholecystectomy H/O cardiac catheterization 12/03/2014 with 3 stents placed Family History Family History Mother Hypertension Cerebrovascular accident Father Hypertension Social History Social History Smoking status: Never smoker Second hand tobacco smoke exposure: No Alcohol intake: current Alcohol use details: SOCIAL 2-3/MONTH Substance use: never Substance use type: does not use Do You Feel Safe in your Home?: Yes Lack of Transportation: No Lack of Food: Never True Current Housing: I Have Housing Concerned About Future Housing: No Difficulty Paying Gas/Electric Bills: No Difficulty Paying for Meds: YES Currently Unemployed: No Education: Master's Degree or Higher Difficulty w/ Childcare or Family Care: No Living arrangements: alone Spiritual care concerns: No Comments At the time of my signature, I reviewed and agree with the nursing past medical, surgical, social, and family history. There is no relevant family history pertinent to the patient complaint. Exam Narrative: General: Well-developed, well nourished, in no apparent distress Head: Normocephalic, atraumatic. Cardio: Regular rate and rhythm, s1 and s2 normal, no murmur appreciated. Resp: Clear to auscultation bilaterally, no rhonchi, rales, wheezing or rubs. Integumentary: [place], warm, and dry, redness and mild erythema with yellow scabbing to the left medial antecubital with lymphatic streaking up to the mid humerus, nontender to palpation, no fluctuance Course Course Emergency Course: Portions of this record may have been created with voice recognition software. Level of Care: Express Care Visit Vital Signs Vital signs: Vital signs reviewed MDM - Skin/Abscess/Foreign Bdy MDM Narrative Medical decision making narrative: At the time of visit patient is resting comfortably on the exam table. Patient appears to be nontoxic. Medications: Rocephin 1 g IM mixed with lidocaine given in the clinic today Plan: I suspect patient has a bacterial skin infection with lymphatic st reaking. Recommend patient go to the emergency room for further evaluation however he declined. Wants to try oral medications first. Stated he did not want to wait and the emergency room for 10 hours. Rocephin 1 g given in the clinic today and prescription for clindamycin was sent to the pharmacy. Supportive measures were discussed with the patient and they voiced understanding discharge instructions and agrees to treatment plan. Strict return precautions reviewed. Differential Diagnosis Differential diagnosis: Likely abscess of skin or subcutaneous tissue, viral exanthem, dermatophytosis, urticaria, herpes zoster, allergic reaction to drug, cellulitis, eczema, insect bites, impetigo and contact dermatitis Discharge Plan Discharge Clinical Impression: Bacterial skin infection of elbow Patient Disposition: Home Condition: Stable Instructions: Antibiotic Form, Cellulitis (ED) Additional Instructions: You declined to go to the emergency room today. Rocephin 1 g IM given in the clinic today Take clindamycin as prescribed Increase fluids and stay well hydrated May take Tylenol/Motrin as needed for pain or fever. Watch for signs and symptoms of worsening infection-increase in streaking, redness, swelling, pain, fever not controlled by Tylenol or Motrin, purulent discharge, or any other concerning symptoms go to the emergency room Follow-up with your PCP in 2 days for a wound check. Patient Language: Japanese Prescriptions: New clindamycin HCl [Cleocin HCl] 300 mg capsule 300 mg PO Q8H 10 Days Qty: 30 0RF No Action finasteride 5 mg tablet 5 mg PO ONCE aspirin [Adult Aspirin Regimen] 81 mg tablet,delayed release (DR/EC) 81 mg PO DAILY lisinopril 20 mg tablet 20 mg PO DAILY Qty: 90 1RF nitroglycerin 0.4 mg tablet, sublingual 0.4 mg sublingual Q5M PRN (Reason: chest pain) Qty: 30 2RF Rx Instructions: do not exceed 3 doses per episode tamsulosin [Flomax] 0.4 mg capsule 0.4 mg PO DAILY Qty: 90 1RF pravastatin 10 mg tablet See Rx Instructions .ROUTE .COMPLEX Qty: 90 3RF Dose Instruction: Take 1 tablet by mouth once daily Rx Instructions: Take 1 tablet by mouth once daily Farxiga 10 mg tablet 10 mg PO DAILY Qty: 90 1RF metformin 500 mg tablet extended release 24 hr See Rx Instructions .ROUTE .COMPLEX Qty: 360 0RF Dose Instruction: Take 2 tablets by mouth twice daily Rx Instructions: Take 2 tablets by mouth twice daily Ozempic 2 mg/dose (8 mg/3 mL) pen injector 2 mg subcut WEEKLY Qty: 3 3RF Rx Instructions: TAKES ON SUNDAYS naproxen 500 mg tablet See Rx Instructions .ROUTE .COMPLEX Qty: 60 1RF Dose Instruction: Take 1 tablet by mouth twice daily Rx Instructions: Take 1 tablet by mouth twice daily Follow-up/Referrals: Raymon Gonzalez MD [Primary Care Provider] - Time of Disposition: 09:17 Quality NIHSS Nursing Documentation ED NIHSS nursing documentation: reviewed/agree
== END 2024-08-25 09:55 | disposition home or self-care (01) ==
PROVIDERS: Emergency Provider Nurse Practitioner Family; PCP Family Medicine
DX: L08.9 Local infection of the skin and subcutaneous tissue, unspecified (principal); B96.89 Other specified bacterial agents as the cause of diseases classified elsewhere; N40.0 Benign prostatic hyperplasia without lower urinary tract symptoms; I10 Essential (primary) hypertension; I25.10 Atherosclerotic heart disease of native coronary artery without angina pectoris; E11.9 Type 2 diabetes mellitus without complications; Z79.84 Long term (current) use of oral hypoglycemic drugs; Z79.85 Long-term (current) use of injectable non-insulin antidiabetic drugs; E78.49 Other hyperlipidemia; E66.9 Obesity, unspecified; Z68.27 Body mass index [BMI] 27.0-27.9, adult; Z79.82 Long term (current) use of aspirin
CPT/HCPCS: 96372; 99213; G0463; J0696; J2003

== ENCOUNTER 2024-10-25 12:26 | Emergency (ER) | payer MEDICARE, SELFPAY ==
[2024-10-25 12:33] VITALS: BP 113/63; PULSE 80; RESP 16; TEMP 36.2; O2SAT 100
--- NOTE | 2024-10-25 12:56 | ED_ITS ---
HPI - URI/Sore Throat General Chief Complaint: Upper Respiratory Infection Stated Complaint: Sinus Time Seen by Provider: 10/25/24 12:45 Source: patient and RN notes reviewed Mode of arrival: ambulatory Limitations: no limitations History of Present Illness HPI Narrative: 69-year-old male presents Express Care complaining of upper respiratory symptoms for approximately 3 weeks. Patient reports having cough, congestion and sinus pressure over the last 3 weeks. Patient has tried [id number] medication without relief. She reports now has nasal discharges becoming thicker and yusuf and yellow in color. Patient denies any chest pain or shortness of breath. Patient denies any other upper respiratory symptoms. Patient has a history of hypertension high cholesterol, diabetes. Related Data Home Medications ?Medication ?Instructions ?Recorded ?Confirmed ?Last Taken ?Type aspirin 81 mg tablet,delayed 81 mg PO DAILY 06/19/19 06/10/24 Unknown History release (Adult Aspirin Regimen) finasteride 5 mg tablet 5 mg PO ONCE 12/13/22 06/10/24 Unknown History Allergies Allergy/AdvReac Type Severity Reaction Status Date / Time No Known Allergies Allergy Verified 10/25/24 12:27 Review of Systems Review of Systems: CONSTITUTIONAL: Denies fever, chills, body aches, or sweats. EYES: Denies visual changes, redness, or discharge. ENT: Negative for rhinorrhea, sore throat, or otalgia. Positive for congestion and sinus pressure. CARDIOVASCULAR: Denies chest pain, palpitations, or edema. RESPIRATORY: Positive for cough. Negative for dyspnea. GASTROINTESTINAL: Denies abdominal pain, nausea, vomiting, or diarrhea. GENITOURINARY: Denies dysuria or hematuria. SKIN: Denies rash or itching. MUSCULOSKELETAL: Denies back pain, joint pain, or myalgia. NEUROLOGIC: Denies headache, numbness, or weakness. PSYCHIATRIC: Denies anxiety or depression. All other systems reviewed are negative, except as documented in HPI. [facility]LY [facility], [facility] Past Medical History Medical History Dyslipidemia Urinary retention Enlarged prostate Screening for colon cancer Screening for prostate cancer Benign essential hypertension CAD in [place] artery Obesity (BMI 30.0-34.9) Other and unspecified hyperlipidemia Type 2 diabetes mellitus without complication, without long-term current use of insulin Surgical History Surgical History H/O excision of mass History of hip replacement Hx of cholecystectomy H/O cardiac catheterization 12/03/2014 with 3 stents placed Family History Family History Mother Hypertension Cerebrovascular accident Father Hypertension Social History Social History Smoking status: Never smoker Second hand tobacco smoke exposure: No Alcohol intake: current Alcohol use details: SOCIAL 2-3/MONTH Substance use: never Substance use type: does not use Do You Feel Safe in your Home?: Yes Lack of Transportation: No Lack of Food: Never True Current Housing: I Have Housing Concerned About Future Housing: No Difficulty Paying Gas/Electric Bills: No Difficulty Paying for Meds: YES Currently Unemployed: No Education: Master's Degree or Higher Difficulty w/ Childcare or Family Care: No Living arrangements: alone Spiritual care concerns: No Comments At the time of my signature, I reviewed and agree with the nursing past medical, surgical, social, and family history. There is no relevant family history pertinent to the patient complaint. Exam Narrative: GENERAL: This is a well-nourished, well-developed adult, in no apparent distress. They are non ill-appearing, nontoxic appearing. HEAD: normocephalic, atraumatic. EYES: Sclera clear/white. Vision is grossly intact. Conjunctiva normal bilaterally. Extraocular movements intact. EARS: External ears normal, auditory canals clear and without drainage, TMs without erythema or perforation. Hearing grossly intact. NOSE: External nose normal with no obvious nasal discharge, nasal turbinates erythematous with purulent discharge present. THROAT: Mucous membranes moist, posterior pharynx without redness or swelling, no exudate. Uvula is midline. Postnasal drip present. NECK: Neck supple, non-tender without lymphadenopathy, masses or thyromegaly. CARDIOVASCULAR: Regular rate and rhythm without murmurs, gallops, or rubs. RESPIRATORY: Clear to auscultation. Breath sounds equal bilaterally. No wheezes, rales, or rhonchi. SKIN: warm, Dry, intact with no suspicious lesions or rash, good texture and turgor. NEURO: awake, alert, and oriented to person, place and time. There were no obvious focal neurologic abnormalities. EXTREMITIES: No joint tenderness, effusion, or edema noted. BACK: Nontender without deformity. Course Course Emergency Course: Portions of this record may have been created with voice recognition software Level of Care: Express Care Visit Vital Signs Vital signs: Vital Signs Temperature 97.1 F L 10/25/24 12:33 Pulse Rate 80 10/25/24 12:33 Respiratory Rate 16 10/25/24 12:33 Blood Pressure 113/63 10/25/24 12:33 Pulse Oximetry 100 10/25/24 12:33 Oxygen Delivery Room Air 10/25/24 12:33 Temperature 97.1 F L 10/25/24 12:33 Pulse Rate 80 10/25/24 12:33 Respiratory Rate 16 10/25/24 12:33 Blood Pressure 113/63 10/25/24 12:33 Pulse Oximetry 100 10/25/24 12:33 Oxygen Delivery Room Air 10/25/24 12:33 MDM - URI/Sore Throat MDM Narrative Medical decision making narrative: If patient's length of symptoms likely has developed a bacterial sinusitis. Will treat empirically with Augmentin. Patient says he is almost out of benzonatate tablets. Will refill benzonatate prescription. Discussed physical exam findings. Advised supportive measures and signs/symptoms to go to the ER. Pt is appropriate for outpt treatment and f/u. Differential Diagnosis Differential diagnosis: Likely upper respiratory infection, otitis media and sinusitis Discharge Plan Discharge Clinical Impression: Sinusitis Qualifiers: Sinusitis location: unspecified location Chronicity: acute Recurrence: non- recurrent Qualified Code(s): J01.90 - Acute sinusitis, unspecified Patient Disposition: Home Condition: Stable Instructions: Antibiotic Form, Sinusitis (ED) Additional Instructions: Take the antibiotics as directed and complete the course even if you start to feel better. You may use a Neti pot saline rinse 3 times a day with lukewarm distilled water Continue to take Tylenol or Motrin for pain. Use a humidifier or vaporizer at night. Drink plenty of water. 8-10 glasses per day. Use flonase 2 times per day for 5 days then as needed Take mucinex 2 times per day and be sure to take with 8oz of water. Follow up with Primary provider in 3-5 days Please go to the ER if he develops any difficulty breathing, worsening symptoms, or any other concerns Patient Language: Canadian Prescriptions: New amoxicillin-pot clavulanate 875-125 mg tablet 1 tablet PO Q12H 7 Days Qty: 14 0RF benzonatate 100 mg capsule 100 mg PO TID PRN (Reason: cough) Qty: 20 0RF No Action finasteride 5 mg tablet 5 mg PO ONCE aspirin [Adult Aspirin Regimen] 81 mg tablet,delayed release (DR/EC) 81 mg PO DAILY nitroglycerin 0.4 mg tablet, sublingual 0.4 mg sublingual Q5M PRN (Reason: chest pain) Qty: 30 2RF Rx Instructions: do not exceed 3 doses per episode pravastatin 10 mg tablet See Rx Instructions .ROUTE .COMPLEX Qty: 90 3RF Dose Instruction: Take 1 tablet by mouth once daily Rx Instructions: Take 1 tablet by mouth once daily Farxiga 10 mg tablet 10 mg PO DAILY Qty: 90 1RF metformin 500 mg tablet extended release 24 hr See Rx Instructions .ROUTE .COMPLEX Qty: 360 0RF Dose Instruction: Take 2 tablets by mouth twice daily Rx Instructions: Take 2 tablets by mouth twice daily Ozempic 2 mg/dose (8 mg/3 mL) pen injector 2 mg subcut WEEKLY Qty: 3 3RF Rx Instructions: TAKES ON SUNDAYS lisinopril 20 mg tablet See Rx Instructions .ROUTE .COMPLEX Qty: 90 2RF Dose Instruction: Take 1 tablet by mouth once daily Rx Instructions: Take 1 tablet by mouth once daily tamsulosin [Flomax] 0.4 mg capsule 0.4 mg PO DAILY Qty: 90 1RF naproxen 500 mg tablet See Rx Instructions .ROUTE .COMPLEX Qty: 60 1RF Dose Instruction: Take 1 tablet by mouth twice daily Rx Instructions: Take 1 tablet by mouth twice daily Follow-up/Referrals: Raymon Gonzalez MD [Primary Care Provider] - Time of Disposition: 12:49
== END 2024-10-25 12:55 | disposition home or self-care (01) ==
PROVIDERS: PCP Family Medicine
DX: J01.90 Acute sinusitis, unspecified (principal); I10 Essential (primary) hypertension; I25.10 Atherosclerotic heart disease of native coronary artery without angina pectoris; E11.9 Type 2 diabetes mellitus without complications; Z79.84 Long term (current) use of oral hypoglycemic drugs; Z79.85 Long-term (current) use of injectable non-insulin antidiabetic drugs; E78.00 Pure hypercholesterolemia, unspecified; E66.9 Obesity, unspecified; Z68.27 Body mass index [BMI] 27.0-27.9, adult; Z79.82 Long term (current) use of aspirin
CPT/HCPCS: 99213; G0463

== ENCOUNTER 2025-03-03 07:49 | Outpatient (CLI) | payer MEDICARE, SELFPAY ==
--- NOTE | ~2025-03-03 | NM_ITS ---
EXAMINATION: NM yesenia stress w perfusion DATE: 03/03/2025 11:13 INDICATION: Chest pain. TECHNIQUE: Rest images were obtained following intravenous administration of 10.3 mCi Tc99m tetrofosmin (Myoview). The patient was infused intravenously with Lexiscan (regadenoson). Then, 34.3 mCi Tc99m tetrofosmin (Myoview) was administered intravenously, and stress images were obtained. Data was temi nstructed into short axis and horizontal and vertical long axis SPECT images. Gated SPECT images were also obtained. COMPARISON: None. FINDINGS: There is no definite reversible or fixed perfusion abnormality to suggest ischemia or infarction. There is no segmental wall motion abnormality. Left ventricular ejection fraction measures 56%. IMPRESSION: 1. No definite ischemia or infarct. 2. Normal left ventricular ejection fraction measuring 56%. Reviewed, dictated and finalized at location E.
--- NOTE | 2025-03-03 08:16 | ECHO_ITS ---
Patient Info Name: Osvaldo Donovan Age: 69 years : 1955 Gender: Male Ht: 68 in Wt: 185 lbs BSA: 2.03 m2 HR: 57 bpm BP: 145 / 85 mmHg Technical Quality: Fair Exam Date: 03/03/2025 8:48 AM Patient Status: O Admit Date: 03/03/2025 Exam Type: CA echo doppler color flow Complete two-dimensional, color flow and Doppler transthoracic echocardiogram is performed. Staff Referring Physician: Mckay Hwang DO Roofing Superintendent: Afshin Whittington III Attending Provider: Mckay Hwang DO Summary 1. Complete two-dimensional, color flow and Doppler transthoracic echocardiogram is performed. 2. Left ventricular chamber dimension is normal. 3. Left ventricular systolic function is normal, estimated at 55-60. 4. The left ventricular diastolic function is grade I diastolic dysfunction. 5. E/e' 9 is minimally elevated. Left Ventricle E/e' 9 is minimally elevated. Left ventricular chamber dimension is normal. Left ventricular systolic function is normal, estimated at 55-60. The left ventricular diastolic function is grade I diastolic dysfunction. Right Ventricle Right ventricular chamber dimension is normal. Right ventricular systolic function is normal and with normal TAPSE 1.8 cm. Left Atria Left atrial chamber dimension is normal. Right Atria Right atrial chamber dimension is normal. Aortic Valve The aortic valve is trileaflet. There is no aortic valve stenosis. There is no aortic valve regurgitation. Pulmonic Valve There is no pulmonic regurgitation. Mitral Valve There is no mitral valve stenosis. There is no mitral valve regurgitation. Tricuspid Valve There is no tricuspid valve regurgitation. Pericardium/Pleural There is no pericardial effusion. Inferior Vena Cava Normal inferior vena cava with >50% collapse upon inspiration consistent with normal right atrial pressure, 5 mmHg. Aorta The aortic root size at the sinus of Valsalva is normal. Left Ventricular Outflow Tract Name Value Normal LVOT 2D LVOT Diameter 2.3 cm LVOT Doppler LVOT Peak Velocity 87 cm/s LVOT Peak Gradient 3 mmHg LVOT Mean Gradient 1 mmHg LVOT VTI 17 cm LVOT VTI/AV VTI Ratio 0.9 LVOT Stroke Volume 74 ml LVOT CO 4.2 l/min LVOT CI 2.1 l/min/m2 Pulmonic Valve Name Value Normal PV Doppler PV Peak Velocity 103 cm/s PV Peak Gradient 4 mmHg PV Mean Gradient 2 mmHg Mitral Valve Name Value Normal MV Doppler MV Peak Gradient 3 mmHg MV Mean Gradient 1 mmHg MV Area (Cont Eq VTI) 3.2 cm2 MV Diastolic Function MV E Peak Velocity 62 cm/s MV A Peak Velocity 83 cm/s MV E/A 0.7 MV Decel Time (PW) 214 ms MV Annular TDI MV E/e' (Septal) 10.7 MV E/e' (Lateral) 8.6 MV E/e' (Average) 9.7 Tricuspid Valve Name Value Normal Estimated PAP/RSVP RA Pressure 5 mmHg <=5 TV Annular TDI TV Lateral Jannette s' Velocity 9.6 cm/s >=9.5 Aortic Valve Name Value Normal AV Doppler AV Peak Velocity 103 cm/s AV Peak Gradient 4 mmHg AV Mean Gradient 2 mmHg AV VTI 19 cm AV Area (Cont Eq VTI) 4.0 cm2 >=3.0 AV Area (Cont Eq Victor Manuel) 3.6 cm2 AV DI (Victor Manuel) 0.84 AV Regurgitation 2D LVOT Area 4.3 cm2 Ventricles Name Value Normal LV Dimensions 2D/MM IVS Diastolic Thickness (2D) 0.9 cm 0.6-1.0 LVID Diastole (2D) 3.5 cm 4.2-5.8 LVIW Diastolic Thickness (2D) 0.8 cm 0.6-1.0 LVID Systole (2D) 2.6 cm 2.5-4.0 LVOT Diameter 2.3 cm LV Mass (2D Cubed) 80.44 g 88.00-224.00 LV Mass Index (2D Cubed) 40 g/m2 49-115 Relative Wall Thickness (2D) 0.44 <=0.42 LV Fractional Shortening/Ejection Fraction 2D/MM LV Fractional Shortening (2D) 25 % 25-43 LV EF (2D Teichholz) 51 % LV Diastolic Volume (4C MOD) 85 ml LV EF (4C MOD) 46 % LV Diastolic Volume (2C MOD) 65 ml LV EF (2C MOD) 51 % LV Diastolic Volume (BP MOD) 79 ml 62-150 LV Diastolic Volume Index (BP MOD) 39 ml/m2 34-74 LV Systolic Volume (BP MOD) 38 ml 21-61 LV Systolic Volume Index (BP MOD) 19 ml/m2 11-31 LV EF (BP MOD) 51 % 52-72 LV Diastolic Length (4C) 8.8 cm LV Systolic Length (4C) 6.6 cm LV Stroke Volume (4C MOD) 39 ml Atria Name Value Normal LA Dimensions LA Volume (4C A-L) 35 ml LA Volume (BP A-L) 42 ml RA Dimensions RA Systolic Major [place] Length (4C) 4.3 cm 2.1-2.7 RA Area (4C) 13.3 cm2 <=18.0 Report Signatures
--- NOTE | 2025-03-03 08:16 | EST_ITS ---
Patient Info Name: Osvaldo Donovan Age: 69 years : 1955 Gender: Male Ht: 69 in Wt: 185 lbs BSA: 2.04 m2 HR: 62 bpm BP: 132 / 81 mmHg Exam Date: 03/03/2025 8:16 AM Patient Status: O Admit Date: 03/03/2025 Exam Type: CA stress yesenia w NM A regadenoson stress test was performed. Staff Referring Physician: Mckay Hwang DO Attending Provider: Mckay Hwang DO Exercise Technologist: Sonam Velásquez Exercise Physician: Mckay Hwang DO Summary 1. 1. Negative lexiscan stress test for ischemic ST changes by ECG criteria. 2. 2. Stable hemodynamics throughout the test. 3. 3. Nuclear scan to follow and will be reported separately. Please correlate with it. 4. 4. Patient informed of the above results. Protocol: Lexiscan Stress ECG Details Stage: REST Duration (min): 1 min : 19 sec HR (bpm): 60 SBP (mmHg): 132 DBP (mmHg): 81 Stage: REST Duration (min): 6 min : 57 sec HR (bpm): 67 SBP (mmHg): 132 DBP (mmHg): 81 Stage: STAGE 1 Duration (min): 1 min : 0 sec HR (bpm): 72 SBP (mmHg): 119 DBP (mmHg): 79 Stage: RECOVERY Duration (min): 1 min : 0 sec HR (bpm): 98 SBP (mmHg): 119 DBP (mmHg): 79 Stage: RECOVERY Duration (min): 2 min : 0 sec HR (bpm): 85 SBP (mmHg): 119 DBP (mmHg): 79 Stage: RECOVERY Duration (min): 3 min : 0 sec HR (bpm): 82 SBP (mmHg): 126 DBP (mmHg): 76 Stage: RECOVERY Duration (min): 3 min : 7 sec HR (bpm): 80 SBP (mmHg): 126 DBP (mmHg): 76 Rest HR: 67 bpm Peak HR: 98 bpm Rest Sys BP: 132 mmHg Peak Sys BP: 126 mmHg Max Pred HR: 153 bpm % Max Pred HR: 64 % Target HR: 130 bpm Max RPP: 12,348 bpm*mmHg Termination Reason: Completed protocol Cardiac Symptoms: Shortness of breath Total Time: 1 min : 0 sec Rest Solis BP: 81 mmHg Peak Solis BP: 76 mmHg Total Dose: 0.4 mg Resting ECG Sinus rhythm. Stress ECG No ST changes. Arrhythmias None. Report Signatures
== END 2025-03-03 07:50 | disposition home or self-care (01) ==
LOC: ANHCARD 07:51
PROVIDERS: PCP Family Medicine; Visit Provider Internal Medicine Cardiovascular Disease
DX: R93.1 Abnormal findings on diagnostic imaging of heart and coronary circulation (principal); R07.9 Chest pain, unspecified; R60.0 Localized edema
CPT/HCPCS: 78452; 93017; 93306; A9502; J2785

== ENCOUNTER 2025-04-14 08:17 | Emergency (ER) | payer MEDICARE, SELFPAY ==
[2025-04-14 08:25] VITALS: BP 118/72; PULSE 80; RESP 18; TEMP 36.6; O2SAT 99
--- NOTE | 2025-04-14 08:25 | ED_ITS ---
HPI - URI/Sore Throat General Chief Complaint: Upper Respiratory Infection Stated Complaint: Sinus Time Seen by Provider: 04/14/25 08:35 Source: patient and RN notes reviewed Mode of arrival: ambulatory Limitations: no limitations History of Present Illness HPI Narrative: 70-year-old male history of diabetes a post COVID lung problems presents with concern for one-week history of cough, sinus congestion and drainage, general malaise and fatigue. Reports thick brown sputum. He is taking [id number] medications without relief. He denies fever but reports body aches MD elicited complaint: cough and nasal congestion Related Data Home Medications ?Medication ?Instructions ?Recorded ?Confirmed ?Last Taken ?Type aspirin 81 mg tablet,delayed 81 mg PO DAILY 06/19/19 0 02/11/25 Unknown History release (Adult Aspirin Regimen) finasteride 5 mg tablet 5 mg PO ONCE 12/13/22 Unknown History Allergies Allergy/AdvReac Type Severity Reaction Status Date / Time No Known Allergies Allergy Verified 04/14/25 08:26 Review of Systems Review of Systems: CONSTITUTIONAL: Denies malaise, chills, sweats, or fever. EYES: Denies visual changes, redness, or discharge. ENT: Reports rhinorrhea, congestion, sinus pain. Denies otalgia and sore throat. CARDIOVASCULAR: Denies chest pain, palpitations, or edema. RESPIRATORY: Reports productive cough. Denies dyspnea. GASTROINTESTINAL: Denies abdominal pain, nausea, vomiting, diarrhea SKIN: Denies rash or itching. MUSCULOSKELETAL: Reports myalgia. NEUROLOGIC: Denies headache. All systems reviewed & are unremarkable except as noted in HPI and below PMFSH Past Medical History Medical History Dyslipidemia Urinary retention Enlarged prostate Screening for colon cancer Screening for prostate cancer Benign essential hypertension CAD in [place] artery Obesity (BMI 30.0-34.9) Other and unspecified hyperlipidemia Type 2 diabetes mellitus without complication, without long-term current use of insulin Surgical History Surgical History H/O excision of mass History of hip replacement Hx of cholecystectomy H/O cardiac catheterization 12/03/2014 with 3 stents placed Family History Family History Mother Hypertension Cerebrovascular accident Father Hypertension Social History Social History Smoking status: Never smoker Second hand tobacco smoke exposure: No Alcohol intake: current Alcohol use details: SOCIAL 2-3/MONTH Substance use: never Substance use type: does not use Do You Feel Safe in your Home?: Yes Lack of Transportation: No Lack of Food: Never True Current Housing: I Have Housing Concerned About Future Housing: No Difficulty Paying Gas/Electric Bills: No Difficulty Paying for Meds: YES Currently Unemployed: No Education: Master's Degree or Higher Difficulty w/ Childcare or Family Care: No Living arrangements: alone Spiritual care concerns: No Comments At time of signature, agree with nursing past medical, surgical, social and family history. There is no relevant family history pertinent to the presenting complaint Exam Narrative: GENERAL: Well-appearing, well-nourished, and in no acute distress. HEAD: Normocephalic EYES: PERRLA, conjunctivae clear ENT: Nares clear, turbinates edematous and erythematous. Mucous membranes moist. TM pearly yusuf with sharp light reflex bilaterally; no tragal tenderness. Oropharynx not erythematous without lesions. Tonsils not enlarged and without exudate, no drooling, no hoarseness, no trismus, uvula midline. NECK: Supple. No lymphadenopathy CHEST: Clear to auscultation, breath sounds equal. No wheezing, rhonchi, rales, or stridor. No respiratory distress, speaks in full sentences. Cough noted HEART: Regular rate and rhythm. No murmur heard. SKIN: Warm, dry, no rash. NEURO: Alert and oriented x3. PSYCH: Normal mood and affect Course Course Emergency Course: Patient is aware of diagnosis, understands and agrees to treatment plan. Anticipatory guidance given. Patient agrees to follow-up as directed and is aware of reasons to seek care at the emergency department. Portions of this record may have been created with voice recognition software Level of Care: Express Care Visit Vital Signs Vital signs: Reviewed. MDM - URI/Sore Throat MDM Narrative Medical decision making narrative: Differential diagnosis considered: [place] virus, strep pharyngitis, allergic rhinitis, upper respiratory tract infection, sinusitis, rhinosinusitis, nasopharyngitis. viral pharyngitis, otitis media, otitis externa, pneumonia, bronchitis, viral cough syndrome, viral syndrome, and influenza. Exam findings show no acute concerns or changes; patient is non-toxic appearing and is in no distress. Patient is appropriate for outpatient treatment and follow-up. Lab Data Attestation: I reviewed the patient's lab results. Critical Care Time Critical Care Time Critical Care Time: No Discharge Plan Discharge Clinical Impression: Sinobronchitis Patient Disposition: Home Condition: Stable Instructions: Antibiotic Form, Sinusitis (ED) Additional Instructions: Take medication as prescribed Recommend antihistamine such as Benadryl at night time and Zyrtec or Anat during the day Cough syrup may cause drowsiness; avoid driving or take it at night time. Also, recommend symptomatic treatment includes: rest, fluids, and increase humidity of the air at home. Recommend Acetaminophen as directed on the bottle to reduce fever, pain, headache. Avoid smoking/second-hand smoke. Please schedule a follow-up visit with your personal physician for further evaluation and treatment within 3-5days. If your symptoms persist, change or w orsen significantly before you can contact your personal physician then please, without delay, go to the emergency department for further evaluation. Patient Language: Malaysian Prescriptions: New doxycycline monohydrate 100 mg tablet 100 mg PO BID 7 Days Qty: 14 0RF methylprednisolone [Medrol (Anurag)] 4 mg tablets,dose pack See Rx Instructions .ROUTE .COMPLEX Qty: 21 0RF Rx Instructions: orally per package directions No Action finasteride 5 mg tablet 5 mg PO ONCE aspirin [Adult Aspirin Regimen] 81 mg tablet,delayed release (DR/EC) 81 mg PO DAILY insulin glargine [Lantus Solostar U-100 Insulin] 100 unit/mL (3 mL) insulin pen 15 unit subcut QAM Qty: 15 3RF budesonide-formoterol [Symbicort] 160-4.5 mcg/actuation HFA aerosol inhaler 2 puff inhalation Q12H Qty: 10.2 0RF losartan-hydrochlorothiazide 100-25 mg tablet 1 tablet PO DAILY Qty: 90 2RF pravastatin 10 mg tablet See Rx Instructions .ROUTE .COMPLEX Qty: 90 3RF Dose Instruction: Take 1 tablet by mouth once daily Rx Instructions: Take 1 tablet by mouth once daily Farxiga 10 mg tablet 10 mg PO DAILY Qty: 90 1RF (DME) pen needle, diabetic [Droplet Pen Needle] 32 gauge x 1/4 needle See Rx Instructions .Route Qty: 100 3RF Rx Instructions: use once daily with lantus injection (DME) FreeStyle Hiral 3 Plus Sensor Device See Rx Instructions .Route Qty: 6 1RF Rx Instructions: Check blood glucose continuously As directed (DME) FreeStyle Hiral 3 [employer] [place] Misc See Rx Instructions .Route Qty: 1 0RF Rx Instructions: use for continual glucose monitoring metformin 500 mg tablet extended release 24 hr See Rx Instructions .ROUTE .COMPLEX Qty: 360 1RF Dose Instruction: Take 2 tablets by mouth twice daily Rx Instructions: Take 2 tablets by mouth twice daily naproxen 500 mg tablet See Rx Instructions .ROUTE .COMPLEX Qty: 60 1RF Dose Instruction: Take 1 tablet by mouth twice daily Rx Instructions: Take 1 tablet by mouth twice daily tamsulosin 0.4 mg capsule See Rx Instructions .ROUTE .COMPLEX Qty: 90 1RF Dose Instruction: Take 1 capsule by mouth once daily Rx Instructions: Take 1 capsule by mouth once daily Ozempic 2 mg/dose (8 mg/3 mL) pen injector See Rx Instructions .ROUTE .COMPLEX Qty: 3 3RF Dose Instruction: INJECT 2 MG SUBCUTANEOUSLY ONCE A WEEK ON SUNDAYS Rx Instructions: INJECT 2 MG SUBCUTANEOUSLY ONCE A WEEK ON SUNDAYS Follow-up/Referrals: Raymon Gonzalez MD [Primary Care Provider, Family Practice] Time of Disposition: 08:46
== END 2025-04-14 08:56 | disposition home or self-care (01) ==
PROVIDERS: Emergency Provider Nurse Practitioner; PCP Family Medicine
DX: J32.9 Chronic sinusitis, unspecified (principal); J40 Bronchitis, not specified as acute or chronic; E11.9 Type 2 diabetes mellitus without complications; Z79.4 Long term (current) use of insulin; Z79.84 Long term (current) use of oral hypoglycemic drugs; I25.10 Atherosclerotic heart disease of native coronary artery without angina pectoris; Z79.85 Long-term (current) use of injectable non-insulin antidiabetic drugs; I10 Essential (primary) hypertension; E78.49 Other hyperlipidemia; E78.5 Hyperlipidemia, unspecified; N40.0 Benign prostatic hyperplasia without lower urinary tract symptoms; E66.9 Obesity, unspecified; Z68.29 Body mass index [BMI] 29.0-29.9, adult; Z86.16 Personal history of COVID-19; Z95.5 Presence of coronary angioplasty implant and graft; Z79.82 Long term (current) use of aspirin
CPT/HCPCS: 99213; G0463